=== PATIENT | male | born 1985 | race Caucasian/White ===

== ENCOUNTER → 2016-12-06 | Outpatient (CLI) | payer BC ==
[2016-12-06 11:28] LABS: BASO % 0.1 %; BASO ABS # 0.01 K/uL (0-0.2); COMPLETE YES; EOS % 0.1 %; HEMATOCRIT 43.7 % (42-52); IG% 0.4 %; LYMPH % 11.9 %; LYMPH ABS # 1.61 K/uL (1.2-3.4); MEAN CELL VOLUME 89.7 fL (80-100); MEAN CORPUSCULAR HGB CONC 34.6 g/dl (32-36); MEAN PLATELET VOLUME 11.3 fL (7.4-10.4); NEUT % 84.5 %; PLATELET COUNT 244 K/uL (130-400); RED BLOOD COUNT 4.87 M/uL (4.7-6.1)
[2016-12-06 11:38] LABS: PARTIAL THROMBOPLASTIN RATIO 1.1; PROTHROMBIN TIME (PATIENT) 10.4 SECONDS (9.0-12.0)
--- NOTE | 2016-12-10 11:04 | CODING QUERY NO DIAGNOSIS ---
TREATMENT RENDERED WITHOUT A DIAGNOSIS : 1985 To promote full compliance with coding requirements relating to patient care, physician participation is requested in all cases of shake feeder uncertainty. Please assist us with providing a diagnosis/symptom for the test(s) below: A diagnosis/symptom was not documented on your Order. A valid diagnosis/symptom is required to bill all insurances. Please remember that we are unable to code a diagnosis of rule out, probable, possible, questionable, or suspected. Tests that require a diagnosis: DOS: 12/06/16 * CBC WITH AUTO DIFFER DIAGNOSIS: * PROTHROMBIN TIME PRO DIAGNOSIS: * PTT DIAGNOSIS: Provider Signature: Date: Thank you Marilee Nicole Health Information Management Once completed, please kindly fax back to [phone] For questions please call [phone]
== END | disposition home or self-care (01) ==
LOC: C.LAB 10:50
PROVIDERS: ATTEND Family Medicine
DX: R23.3 Spontaneous ecchymoses (principal)

== ENCOUNTER 2017-08-19 05:43 | Observation (INO) | payer BC ==
[~2017-08-19] VITALS: Ht 182.9 cm; Wt 149.5 kg
[2017-08-19] MEDS ORDERED: EpINEphrine INJ 1MG/ML AMP 1 MG/ML AMP IM STA ×2 (06:03→09:50)
[2017-08-19] MEDS ORDERED: DiphenhydrAMINE HCL 50 MG/ML VIAL IV STA ×2 (06:03→08:48)
[2017-08-19] MEDS ORDERED: METHYLPREDNISOLONE 125 MG VIAL IV STA (06:03)
[2017-08-19] MEDS ORDERED: SODIUM CHLORIDE 0.9% 1000ML 1,000 ML IV ONE (06:15)
[2017-08-19] MEDS ORDERED: FAMOTIDINE IV INJ 20 MG in DEXTROSE 5% 100ML 100 ML IV ONE ×2 (06:15→12:00)
[2017-08-19 06:25] LABS: BASO % 0.1 %; BASO ABS # 0.01 K/uL (0-0.2); EOS % 0.5 %; EOS ABS # 0.04 K/uL (0-0.5); HEMATOCRIT 42.6 % (42-52); HEMOGLOBIN 14.9 g/dL (14.0-18.0); IG# 0.05 K/uL (0.00-0.02); LYMPH % 33.5 %; LYMPH ABS # 2.87 K/uL (1.2-3.4); MEAN CELL VOLUME 86.6 fL (80-100); MEAN CORPUSCULAR HEMOGLOBIN 30.3 pg (25-34); MEAN PLATELET VOLUME 10.7 fL (7.4-10.4); MONO % 5.4 %; MONO ABS # 0.46 K/uL (0.11-0.59); NEUT % 59.9 %; NEUT ABS # 5.14 K/uL (1.4-6.5); PLATELET COUNT 202 K/uL (130-400); RED CELL DISTRIBUTION WIDTH SD 40.9 fL (36.4-46.3); WHITE BLOOD COUNT 8.57 K/uL (4.8-10.8)
[2017-08-19 06:42] LABS: ALBUMIN 3.8 gm/dl (3.4-5.0); CALCIUM 9.3 mg/dl (8.5-10.1); CREATININE 1.02 mg/dl (0.60-1.40)
[2017-08-19 06:45] LABS: TOTAL PROTEIN 7.4 gm/dl (6.4-8.2)
[2017-08-19 10:17] VITALS: O2SAT 97; Ht 182.9 cm; Wt 149.5 kg
[2017-08-19] MEDS ORDERED: HydrALAZINE HCL 20 MG/ML VIAL IV PRN (11:15)
[2017-08-19] MEDS ORDERED: ACETAMINOPHEN 325 MG TAB PO PRN (11:30)
[2017-08-19] MEDS ORDERED: MAGNESIUM HYDROXIDE SUSP 30 ML UDC PO PRN (11:30)
[2017-08-19] MEDS ORDERED: ONDANSETRON INJ 2 MG/ML 2 ML VIAL IV PRN (11:30)
[2017-08-19] MEDS ORDERED: ALUMINUM/MAGNESIUM/SIMETH (MAALOX MAX) 30 ML UDC PO PRN (11:30)
[2017-08-19] MEDS ORDERED: FAMOTIDINE IV INJ 20 MG in DEXTROSE 5% 100ML 100 ML IV SCH (11:30)
--- NOTE | 2017-08-19 11:34 | History and Physical ---
History & Physical Date & Time of Service: Aug 19, 2017 at 11:27 Chief Complaint: HIVES Primary Care Physician: Deny Joshi M.D. History of Present Illness This patient is a 32-year-old male who just returned from [place] where he was on his honeymoon this is reportedly 4 days prior to today he reportedly felt fine ate all kinds of seafood and fish. The patient does have an allergy listed to mark and watermelon but he states he had no problems during his vacation. One day prior to presentation the patient was eating at [employer] where he had some fish some shrimp he had some mozzarella sticks a few hours later he began noticing him having some hives or itching beginning in his axillary folds. Patient took some Benadryl and some red bull as he did not want to get tired from the Benadryl and went to bed. The patient had no problems sleeping or breathing overnight but this morning noticed him to have more widespread rash and more pruritus. Patient also noticed the swelling to his hands. Patient still does not have any problems with breathing as he states he has had that in the past specifically with antibiotics and knows how scary I can be. In the ER the patient was treated with steroids IV Benadryl epinephrine IV Pepcid with transient mild improvement but now recurrence of his symptoms He is observed in our facility for progressive allergic reaction/anaphylaxis Social History Smoking Status: Current Some Day Smoker Smokeless Tobacco Use: No Alcohol Use: socially Drug Use: none Marital Status: Housing status: lives with family Occupational Status: employed Allergies Coded Allergies: Azithromycin (Verified Allergy, Severe, RASH, 08/19/17) throat closes some [place] (Verified Allergy, Severe, pruritis, 08/19/17) Penicillins (Verified Allergy, Severe, SHORTNESS OF BREATH, 08/19/17) rash Watermelon (Verified Allergy, Severe, itchy, 08/19/17) Amoxicillin (Verified Allergy, Unknown, SHORTNESS OF BREATH, 08/19/17) rash Uncoded Allergies: MELON (Allergy, Severe, itchy skin, 08/19/17) Home Medications No Active Prescriptions or Reported Meds Review of Systems ROS: well nourished well developed. No double vision blurry vision No problems with speech or swallowing No palpitations, chest pain or pressure, the patient did feel a racing heartbeat with epinephrine No Wheezing or breathing issues No abdominal pain nausea vomiting diarrhea changes in appetite or weight No burning urine urine frequency or changes in color No focal joint pain or muscle pain Diffuse erythematous well-demarcated papules and some hives worse in flexural folds of his body saw him on his palms (mostly reddened without raised areas) No unusual bruising or bleeding No focused back pain or numbness or loss of strength No changes in memory or confusion Physical Exam Vital Signs Date Time Temp Pulse Resp B/P (MAP) Pulse Ox O2 Delivery O2 Flow Rate FiO2 08/19/17 11:01 111 22 164/98 97 Room Air 2.0 08/19/17 10:17 97 Room Air 2.0 08/19/17 10:16 103 08/19/17 10:13 106 20 178/97 97 Room Air 08/19/17 10:12 98 Nasal Cannula 2.0 08/19/17 09:45 108 20 155/82 94 Room Air 08/19/17 09:13 105 20 166/98 95 Room Air 08/19/17 08:15 100 20 150/99 96 Room Air 08/19/17 06:56 93 20 154/88 95 Room Air 08/19/17 06:22 104 08/19/17 06:20 97 Room Air 08/19/17 06:19 97 Room Air 08/19/17 05:49 36.8 112 20 158/97 97 Room Air General Appearance: WD/WN, + mild distress Head: normocephalic, atraumatic Eyes: normal inspection, sclerae normal ENT: pharynx normal Neck: supple, no JVD Respiratory/Chest: chest non-tender, lungs clear, normal breath sounds Cardiovascular: regular rate, rhythm, no murmur Abdomen/GI: normal bowel sounds, non tender, soft Back: no CVA tenderness, no muscle spasm Extremities/Musculoskelatal: normal inspection, normal capillary refill Neurologic/Psych: alert, oriented x 3 Skin: + rash (There is widespread diffuse well-circumscribed erythematous hives and well-demarcated coalescing plaques consistent with allergic reaction) Diagnostics Laboratory Results Results Past 24 Hours Test 08/19/17 06:10 Range/Units White Blood Count 8.57 4.8-10.8 K/uL Red Blood Count 4.92 4.7-6.1 M/uL Hemoglobin 14.9 14.0-18.0 g/dL Hematocrit 42.6 42-52 % Mean Corpuscular Volume 86.6 80-100 fL Mean Corpuscular Hemoglobin 30.3 25-34 pg Mean Corpuscular Hemoglobin Concent 35.0 32-36 g/dl Platelet Count 202 130-400 K/uL Mean Platelet Volume 10.7 7.4-10.4 fL Neutrophils (%) (Auto) 59.9 % Lymphocytes (%) (Auto) 33.5 % Monocytes (%) (Auto) 5.4 % Eosinophils (%) (Auto) 0.5 % Basophils (%) (Auto) 0.1 % Neutrophils # (Auto) 5.14 1.4-6.5 K/uL Lymphocytes # (Auto) 2.87 1.2-3.4 K/uL Monocytes # (Auto) 0.46 0.11-0.59 K/uL Eosinophils # (Auto) 0.04 0-0.5 K/uL Basophils # (Auto) 0.01 0-0.2 K/uL RDW Standard Deviation 40.9 36.4-46.3 fL RDW Coefficient of Variation 13.0 11.5-14.5 % Immature Granulocyte % (Auto) 0.6 % Immature Granulocyte # (Auto) 0.05 0.00-0.02 K/uL Sodium Level 138 136-145 mmol/L Potassium Level 4.0 3.5-5.1 mmol/L Chloride Level 107 98-107 mmol/L Carbon Dioxide Level 23 21-32 mmol/L Anion Gap 8.0 3-11 mmol/L Blood Urea Nitrogen 11 7-18 mg/dl Creatinine 1.02 0.60-1.40 mg/dl Est Creatinine Clear Calc Drug Dose 158.1 ml/min Estimated GFR () 113.0 Estimated GFR (Non- 97.5 BUN/Creatinine Ratio 11.0 10-20 Random Glucose 148 70-99 mg/dl Calcium Level 9.3 8.5-10.1 mg/dl Total Bilirubin 0.3 0.2-1 mg/dl Aspartate Amino Transf (AST/SGOT) 30 15-37 U/L Alanine Aminotransferase (ALT/SGPT) 86 12-78 U/L Alkaline Phosphatase 70 45-117 U/L Total Protein 7.4 6.4-8.2 gm/dl Albumin 3.8 3.4-5.0 gm/dl Globulin 3.6 2.5-4.0 gm/dl Albumin/Globulin Ratio 1.1 0.9-2 Impression Assessment and Plan 32-year-old male with progressive allergic reaction, recent exposure to shellfish Because of this patient's allergic reaction is not quite a down in the ER and he has given epinephrine with unknown need of it in the future this patient be observed in telemetry for the ability to act quickly if his allergic reaction does progress. Patient be continued on Solu-Medrol intravenous famotidine and intravenous diphenhydramine monitoring his vital signs and oximetry. We did discuss with the presence of his the possibility of having allergy testing after discharge Because of the degree of inflammation, the patient's BMI of 44 horrifying him to be morbidly obese and is likely mobility over next few days we will use Lovenox therapy for DVT prevention Advanced Directives Existing Living Will: No Existing Power of [employer] Worker: No Resuscitation Status VTE Prophylaxis Will order VTE Prophylaxis: Yes Social Service Consult None Apply
[2017-08-19] MEDS: DiphenhydrAMINE HCL 50 MG/ML VIAL IV SCH ×3 (12:00→23:57)
[2017-08-19] MEDS ORDERED: DiphenhydrAMINE INJ 25 MG in SYRINGE 0 ML IV SCH (12:00)
[2017-08-19] MEDS ORDERED: DiphenhydrAMINE HCL 50 MG/ML VIAL IV ONE (12:00)
[2017-08-19 12:03] LABS: PTT PATIENT 27.1 SECONDS (21.0-31.0)
[2017-08-19] MEDS ORDERED: FAMOTIDINE IV INJ 20 MG in SYRINGE 3 ML IV ONE (12:30)
[2017-08-19] MEDS: METHYLPREDNISOLONE IV 40 MG in SYRINGE 0 ML IV SCH ×3 (13:11→23:57)
[2017-08-19] MEDS ORDERED: hydrOXYzine HCL 25 MG TAB PO STA (15:19)
[2017-08-19 16:00] VITALS: PULSE 125; O2SAT 98
--- NOTE | 2017-08-19 16:58 | EMERGENCY ROOM VISIT NOTE ---
ED Visit Note First contact with patient: 07:12 This is a 32-year-old male his care was transferred to ks from Archie Arreola PA-C at change of shift. The patient came to the emergency department with complaint of an allergic reaction to food. Patient was administered IV medications and subcutaneous epinephrine which helped to control his symptoms. At the time of transfer of care, the patient was being observed for an approximate 4-5 hours prior to discharge. 3 hours after his medication dosing, the patient started to report an itchy sensation again in his abdomen and arms. The patient was then administered Benadryl 25 mg IVP which helped for approximately 15 minutes before the patient's stated that he felt like his lips were swelling. He also started to notice swelling of the left hand and foot. At this point, the patient was administered an additional epinephrine 0.3 mg subcutaneous. The patient reports that he continued to have further outbreak of hives. He denied any chest pain, shortness of breath, throat tightness or difficulty breathing. The case was then further discussed with Dr. Cartwright, ED attending physician , who agrees with hospitalist evaluation and observation for symptoms. The case was discussed with Dr. Saavedra, [facility] hospitalist. Please see their dictation for further treatment and final disposition. DIAGNOSIS: Anaphylaxis
[2017-08-19] MEDS: FAMOTIDINE IV INJ 20 MG in SYRINGE 3 ML IV SCH (17:01)
[2017-08-19] MEDS ORDERED: IV FLUIDS COMPLETED PRN (17:30)
[2017-08-19] MEDS: ENOXAPARIN 40 MG/0.4 ML SYR SC SCH (17:55)
[2017-08-19 18:03] VITALS: BP_SYST 158; BP_SYST 160; BP_DIAS 101; BP_DIAS 99
[2017-08-19 18:35] VITALS: BP 147/93
[2017-08-19 19:47] VITALS: BP 175/105; PULSE 127; TEMP 36.5; O2SAT 98
[2017-08-19] MEDS ORDERED: NURSING VERBAL MED ORDER ONE ×3 (20:15→21:00)
[2017-08-19] MEDS ORDERED: MoRPHine SULFATE 2 MG/ML CARP IV PRN (20:15)
[2017-08-19] MEDS ORDERED: KETOROLAC TROMETHAMINE 15 MG/ML VIAL IV. PRN (22:00)
[2017-08-20] VITALS (7 sets, daily range): BP systolic 128–154; BP diastolic 75–98; PULSE 107–116; TEMP 36.5–37.6; O2SAT 92–100
--- NOTE | 2017-08-20 02:10 | EMERGENCY ROOM VISIT NOTE ---
History First contact with patient: 05:56 Chief Complaint: ALLERGIC REACTION Stated Complaint: ANAPHYLAXIS History of Present Illness The patient is a 32 year old male who presents to the Emergency Room with complaints of abdominal pain, nausea, and full body rash that began spontaneously about 1 hour ago. The patient states that he was at his normal state of health earlier today. He recently returned home after honeymooning with this in [facility]. The patient states that he had seafood for dinner, which she has tolerated in the past. Shortly after having the seafood he began with abdominal discomfort, and then the rash. He did take some Benadryl at home which did not significantly improve his symptoms. He feels like he is having swelling of his lower lip. The patient rates his current discomfort a 5/10. He does not take prescription medication on a regular basis , and denies recent antibiotic use. Review of Systems More than 10 systems were reviewed and otherwise negative with the exception of history of present illness. Past Medical/Surgical History No chronic medical disease Family History No pertinent family history Social History Smoking Status: Current Some Day Smoker Smokeless Tobacco Use: No Drug Use: none Marital Status: Occupation Status: employed Current/Historical Medications No Active Prescriptions or Reported Meds Physical Exam Vital Signs Date Time Temp Pulse Resp B/P (MAP) Pulse Ox O2 Delivery O2 Flow Rate FiO2 08/19/17 11:01 111 22 164/98 97 Room Air 2.0 08/19/17 10:17 97 Room Air 2.0 08/19/17 10:16 103 08/19/17 10:13 106 20 178/97 97 Room Air 08/19/17 10:12 98 Nasal Cannula 2.0 08/19/17 09:45 108 20 155/82 94 Room Air 08/19/17 09:13 105 20 166/98 95 Room Air 08/19/17 08:15 100 20 150/99 96 Room Air 08/19/17 06:56 93 20 154/88 95 Room Air 08/19/17 06:22 104 08/19/17 06:20 97 Room Air 08/19/17 06:19 97 Room Air 08/19/17 05:49 36.8 112 20 158/97 97 Room Air Physical Exam VITALS: Vitals are noted on the nurse's note and reviewed by myself. Vital signs with tachycardia GENERAL: White male who is experiencing an obvious allergic reaction. MOUTH: Mucous membranes moist. Tonsils are not enlarged. Pharynx without erythema, blood, or exudate. Uvula midline. Airway patent. There is mild edema of the lower lip primarily on the right side. NECK: Supple without nuchal rigidity. No lymphadenopathy. No thyromegaly. Cervical spine is nontender. HEART: Tachycardic rate and regular rhythm LUNGS: Clear to auscultation bilaterally without wheezes, rales or rhonchi. No retractions or accessory muscle use. ABDOMEN: Positive normal bowel sounds x 4. Soft, nontender, without masses or organomegaly. No guarding or rebound tenderness. SKIN: The skin was with diffuse erythema with extensive urticaria best appreciated on the anterior forearms and abdomen Medical Decision & Procedures Laboratory Results 08/19/17 06:10 Red Blood Count 4.92, Mean Corpuscular Volume 86.6, Mean Corpuscular Hemoglobin 30.3, Mean Corpuscular Hemoglobin Concent 35.0, Mean Platelet Volume 10.7, Neutrophils (%) (Auto) 59.9, Lymphocytes (%) (Auto) 33.5, Monocytes (%) (Auto) 5.4, Eosinophils (%) (Auto) 0.5, Basophils (%) (Auto) 0.1, Neutrophils # (Auto) 5.14, Lymphocytes # (Auto) 2.87, Monocytes # (Auto) 0.46, Eosinophils # (Auto) 0.04, Basophils # (Auto) 0.01 08/19/17 06:10 Test 08/19/17 06:10 White Blood Count 8.57 K/uL (4.8-10.8) Red Blood Count 4.92 M/uL (4.7-6.1) Hemoglobin 14.9 g/dL (14.0-18.0) Hematocrit 42.6 % (42-52) Mean Corpuscular Volume 86.6 fL (80-100) Mean Corpuscular Hemoglobin 30.3 pg (25-34) Mean Corpuscular Hemoglobin Concent 35.0 g/dl (32-36) Platelet Count 202 K/uL (130-400) Mean Platelet Volume 10.7 fL (7.4-10.4) Neutrophils (%) (Auto) 59.9 % Lymphocytes (%) (Auto) 33.5 % Monocytes (%) (Auto) 5.4 % Eosinophils (%) (Auto) 0.5 % Basophils (%) (Auto) 0.1 % Neutrophils # (Auto) 5.14 K/uL (1.4-6.5) Lymphocytes # (Auto) 2.87 K/uL (1.2-3.4) Monocytes # (Auto) 0.46 K/uL (0.11-0.59) Eosinophils # (Auto) 0.04 K/uL (0-0.5) Basophils # (Auto) 0.01 K/uL (0-0.2) RDW Standard Deviation 40.9 fL (36.4-46.3) RDW Coefficient of Variation 13.0 % (11.5-14.5) Immature Granulocyte % (Auto) 0.6 % Immature Granulocyte # (Auto) 0.05 K/uL (0.00-0.02) Prothrombin Time 10.7 SECONDS (9.0-12.0) Prothromb Time International Ratio 1.0 (0.9-1.1) Activated Partial Thromboplast Time 27.1 SECONDS (21.0-31.0) Partial Thromboplastin Ratio 1.0 Anion Gap 8.0 mmol/L (3-11) Est Creatinine Clear Calc Drug Dose 158.1 ml/min Estimated GFR () 113.0 Estimated GFR (Non- 97.5 BUN/Creatinine Ratio 11.0 (10-20) Calcium Level 9.3 mg/dl (8.5-10.1) Total Bilirubin 0.3 mg/dl (0.2-1) Aspartate Amino Transf (AST/SGOT) 30 U/L (15-37) Alanine Aminotransferase (ALT/SGPT) 86 U/L (12-78) Alkaline Phosphatase 70 U/L (45-117) Total Protein 7.4 gm/dl (6.4-8.2) Albumin 3.8 gm/dl (3.4-5.0) Globulin 3.6 gm/dl (2.5-4.0) Albumin/Globulin Ratio 1.1 (0.9-2) Medications Administered Medications (Trade) Dose Ordered Sig/Mirna Route Start Time Stop Time Status Last Admin Dose Admin Diphenhydramine HCl (Benadryl Inj) 50 mg NOW STAT IV 08/19/17 06:03 08/19/17 06:06 DC 08/19/17 06:13 50 MG Sodium Chloride 1,000 ml @ 999 mls/hr Q1H1M ONCE IV 08/19/17 06:15 08/19/17 07:15 DC 08/19/17 06:13 999 MLS/HR Methylprednisolone Sodium Succinate (Solu-Medrol IV) 125 mg NOW STAT IV 08/19/17 06:03 08/19/17 06:06 DC 08/19/17 06:13 125 MG Famotidine 20 mg/ Dextrose 102 ml @ 200 mls/hr NOW ONCE IV 08/19/17 06:15 08/19/17 06:45 DC 08/19/17 06:39 200 MLS/HR Epinephrine HCl (EpINEphrine INJ 1MG/ML AMP/VIAL) 0.3 mg NOW STAT IM 08/19/17 06:03 08/19/17 06:06 DC 08/19/17 06:13 0.3 MG Diphenhydramine HCl (Benadryl Inj) 25 mg NOW STAT IV 08/19/17 08:48 08/19/17 08:49 DC 08/19/17 08:55 25 MG Epinephrine HCl (EpINEphrine INJ 1MG/ML AMP/VIAL) 0.3 mg NOW STAT IM 08/19/17 09:50 08/19/17 09:52 DC 08/19/17 09:58 0.3 MG Hydralazine HCl (HydrALAZINE INJ) 10 mg Q4H PRN IV 08/19/17 11:15 09/18/17 11:14 08/19/17 18:02 10 MG ED Course Physical exam and history were performed. Nursing notes, EMR, and Medication List were personally reviewed. Patient appears to be experiencing an allergic reaction. The patient was evaluated immediately upon presentation to the emergency department. He appears to be in anaphylaxis. IV access was established and labs were obtained. The patient was given IV Benadryl, IV Pepcid, and IV Solu-Medrol. He was given IM epinephrine. He is placed on the cardiac care nurse. The patient's blood work is as above and was reviewed. He does not have a significantly elevated white blood cell count, gross anemia, bandemia, or significant electrolyte imbalance. The patient was monitored very closely and reevaluated multiple times throughout the course of his stay. After about 1 hour of being given medication the patient had remarkable improvement in his erythema and his hives. I initially thought that the redness of his skin may have been from being in [place], and could be related to a sunburn, however after medication it was obvious that this was from his allergic reaction. The patient remained in stable condition until the time of shift change. I discussed the case with Stan Santiago PA-C, who will assume care at this time. The patient will need monitoring for several more hours to ensure no rebound reaction after the epinephrine. Please see Mr. Santiago's dictation for further patient course, plan, and disposition The chart was completed utilizing [employer] Speech Voice Recognition Software. Grammatical errors, random word insertions, pronoun errors, and incomplete sentences are an occasional consequence of this system due to software limitations, ambient noise, and hardware issues. Any formal questions or concerns about the content, text, or information contained within the body of this dictation should be directly addressed to the provider for clarification. . Medical Decision Differential diagnosis: Etiologies such as allergic reaction, anaphylaxis, urticaria, Bacon-Alberto syndrome, toxic epidermal necrolysis, erythema multiforme, cellulitis, as well as others were entertained. Impression Primary Impression: Anaphylaxis Critical Care I have personally spent greater than 30 minutes of critical care time in the direct management of this patient. This includes bedside care, interpretation of diagnostic studies, and testing, discussion with consultants, patient, and family members, and other required patient management activities. This 30 minutes is in excess of all separately billable procedures. Departure Information Dispostion Home / Self-Care Condition FAIR Prescriptions No Active Prescriptions or Reported Meds Referrals Deny Joshi M.D. (PCP) Forms HOME CARE DOCUMENTATION FORM, IMPORTANT VISIT INFORMATION Patient Instructions My [facility] Additional Instructions For the next 48 hours, suggest taking Benadryl 25-50 mg every 6-8 hours PLUS Zantac 150 mg every 12 hours. You have been provided a prescription for an EpiPen should your symptoms significantly worsen. Keep cool and avoid hot showers. Follow-up with your PCP within the next 24-48 hours for recheck. Return to the emergency department immediately for any worsening symptoms. Problem Qualifiers Primary Impression: Anaphylaxis Encounter type: initial encounter Qualified Codes: T78.2XXA - Anaphylactic shock, unspecified, initial encounter
[2017-08-20] MEDS: DiphenhydrAMINE HCL 50 MG/ML VIAL IV SCH ×3 (06:08→18:52)
[2017-08-20] MEDS: METHYLPREDNISOLONE IV 40 MG in SYRINGE 0 ML IV SCH ×3 (06:08→17:59)
[2017-08-20] MEDS: FAMOTIDINE IV INJ 20 MG in SYRINGE 3 ML IV SCH ×2 (06:08→18:01)
[2017-08-20 07:07] LABS: CREATININE 1.21 mg/dl (0.60-1.40); POTASSIUM 4.4 mmol/L (3.5-5.1)
--- NOTE | 2017-08-20 08:20 | Hospitalist Progress Note ---
Hospitalist Progress Note Date of Service Aug 20, 2017. Subjective Pt evaluation today including: conversation w/ patient, conversation w/ family , physical exam, chart review, lab review Pain: None PO Intake: Good Voiding: no voiding problems The patient was seen and examined this morning. Pt reports doing much better than last night. His rash and itching has significantly improved but that this is still overlying his back slightly. Pt was recently in [place] from his honeymoon for 6 days, and returned 2 days ago. Pt is sunburnt from the trip, but report that he truely had hives last night. is present and provides pictures of the rash to show me what it looked like for comparison. He remains tachycardic, does not complain of chest pain or shortness of breath. He was initially hypoxic in the low 90s on room air so was placed on 3L, since this afternoon has been weaned off o2. He denies any other acute complaints. Pt does not know what he could have eaten that would have caused him to have this type of reaction. Follow up later in the day - pt is still tachycardic and requesting for discharge if possible. ROS: 6 point ROS reviewed and otherwise negative. Objective Vital Signs Date Time Temp Pulse Resp B/P (MAP) Pulse Ox O2 Delivery O2 Flow Rate FiO2 08/20/17 08:02 37.6 107 20 128/88 (101) 100 08/20/17 04:00 Nasal Cannula 3.0 08/20/17 03:33 36.5 116 22 139/93 (108) 98 Nasal Cannula 3.0 08/20/17 00:00 36.8 115 16 139/95 (110) 97 Nasal Cannula 3.0 08/19/17 23:59 Nasal Cannula 3.0 08/19/17 20:00 Nasal Cannula 2.0 08/19/17 19:47 36.5 127 20 175/105 (128) 98 Nasal Cannula 2.0 08/19/17 18:35 147/93 (111) 08/19/17 18:03 160/99 (119) 158/101 (120) 08/19/17 16:00 125 14 Nasal Cannula 08/19/17 16:00 98 Nasal Cannula 2.0 08/19/17 11:01 111 22 164/98 97 Room Air 2.0 08/19/17 10:17 97 Room Air 2.0 08/19/17 10:16 103 08/19/17 10:13 106 20 178/97 97 Room Air 08/19/17 10:12 98 Nasal Cannula 2.0 08/19/17 09:45 108 20 155/82 94 Room Air 08/19/17 09:13 105 20 166/98 95 Room Air Physical Exam General Appearance: WD/WN, no apparent distress, + obese Eyes: PERRL, EOMI ENT: hearing grossly normal, pharynx normal Neck: supple, no JVD Respiratory/Chest: lungs clear, no respiratory distress, no accessory muscle use Cardiovascular: + tachycardia (HR in the 110s), + systolic murmur (LUSB 2nd ICS , grade III/IV) Abdomen: normal bowel sounds, non tender, soft Extremities: non-tender, no pedal edema, no calf tenderness Neurologic/Psychiatric: alert, normal mood/affect, oriented x 3 Skin: warm/dry, + pertinent finding (diffuse maculopapular rash overlying back , arms and chest, + sunburn over chest and back. Rash does not extend below the waist.) Laboratory Results Last 24 Hours Test 08/20/17 06:03 Sodium Level 135 mmol/L Potassium Level 4.4 mmol/L Chloride Level 104 mmol/L Carbon Dioxide Level 21 mmol/L Anion Gap 10.0 mmol/L Blood Urea Nitrogen 21 mg/dl Creatinine 1.21 mg/dl Est Creatinine Clear Calc Drug Dose 133.1 ml/min Estimated GFR () 91.9 Estimated GFR (Non- 79.3 BUN/Creatinine Ratio 17.7 Random Glucose 315 mg/dl Calcium Level 9.0 mg/dl Beta-Hydroxybutyric Acid 1.44 mg/dL Assessment and Plan 32-year-old male with progressive allergic reaction, recent exposure to shellfish. The patient has remained tachycardic, so suspicious for PE with hypoxia and recent travel. A Ddimer was checked and [place] 3610. CT PE has been ordered urgently, and are awaiting results. Tachycardia Systolic murmur - Not improved throughout the day - recent travel via plane to [facility] is concerning for PE - Checked ddimer which is significantly elevated, CTPE was negative but reported with poor image quality. V/Q scan would likely not give more information due to body habitus. Will check DVT Bilat LE to r/o. - Will check infectious workup with Bcx x 2, UA and culture if indicated - Check TSH with tachycardia - IVFs x 1 L - O2 protocol - Ordered 2d echo with murmur noted on exam, pt denies hx of murmur before. Allergic reaction: - In ER pt was given epinephrine - observed in telemetry for the ability to act quickly if his allergic reaction does progress. - at this time allergic reaction seems to be improving. He is also sunburnt admist the rash though. - Ddimer possibly elevated due to proinflammatory reaction - Continued on solumedrol, iv famotidine and iv benadryl - Likely needs allergy testing after dc Morbid Obesity - BMI 44.7 - Encourage diet and exercise DVT ppx: lovenox subq Disposition: From home, lives with , change to admit status today, possible discharge tomorrow. Continued [facility] stay due to: fever, abnormal vital signs Discharge planning: home
[2017-08-20] MEDS ORDERED: NURSING VERBAL MED ORDER ONE ×2 (16:45)
[2017-08-20] MEDS ORDERED: OPTIRAY 320 IV PRN (16:45)
[2017-08-20] MEDS ORDERED: SODIUM CHLORIDE 0.9% 1000ML 1,000 ML IV SCH (17:00)
--- NOTE | 2017-08-20 17:31 | DIAGNOSTIC IMAGING REPORT ---
(CHEST FOR PE) ANGIO WITH CLINICAL HISTORY: 32 years-old Male presenting with ^Tachycardia, desaturation, + Ddimer. TECHNIQUE: Multidetector CT angiography of the chest was performed after administration of intravenous contrast. 3-D volumetric and/or maximum intensity projection (MIP) images were subsequently reconstructed for review. IV contrast: 108 mL of Optiray 320. A dose lowering technique was used consistent with the principles of ALARA (as low as reasonably achievable). COMPARISON: None. CT DOSE (mGy.cm): The estimated cumulative dose is 689.65 mGy.cm. FINDINGS: Shampoo Technician topogram: Unremarkable. Pulmonary vasculature: The study is suboptimal for the assessment of the pulmonary vascular tree secondary to timing of the contrast bolus and respiratory motion artifact. Allowing for limited image quality, no central filling defect to suggest pulmonary embolus. Main pulmonary artery is not enlarged. No flattening of the interventricular septum. No intracardiac filling defect. No reflux of contrast into the hepatic veins. Remaining chest: On soft tissue windows, normal thyroid and thoracic inlet. No axillary, supraclavicular, hilar, or mediastinal lymphadenopathy. Normal aorta. Normal heart size. No pericardial or pleural effusion. Hepatic steatosis. On lung windows, no focal infiltrate or nodule. Airways patent. On bone windows, normal osseous structures. IMPRESSION: 1. Allowing for suboptimal image quality, no evidence of pulmonary embolus. No acute intrathoracic pathology. 2. Hepatic steatosis. Electronically signed by: Jose Wade M.D. 08/20/2017 5:29 PM Dictated Date/Time: 08/20/2017 5:26 PM
[2017-08-20] MEDS ORDERED: PERFLUTREN LIPID MICROSPHERE (DEFINITY) IV ONE (17:58)
[2017-08-20] MEDS: ENOXAPARIN 40 MG/0.4 ML SYR SC SCH (18:00)
--- NOTE | 2017-08-20 19:17 | ECHOCARDIOGRAM REPORT ---
*NOTICE TO RECEIVING DEMOCRAT AGENCY This information is strictly Confidential and protected under [place] law. [place] law prohibits you from making any further disclosure of this information unless further disclosure is expressly permitted by the written consent of the person to whom it pertains or is authorized by law. A general authorization for the release of medical or other information is not sufficient for this purpose. Hospital accepts no responsibility if the information is made available to any other person, INCLUDING THE PATIENT. Interpretation Summary * Name: JON LOPEZ Study Date: 08/20/2017 05:11 PM BP: 154/75 mmHg * Patient Location: .2E\S\E204\S\1 HR: 115 * : 1985 (M/d/yyyy) Gender: Male Height: 72 in * Age: 32 yrs Ethnicity: CA Weight: 329 lb * Ordering Physician: Dee Major * Referring Physician: Self, Referred * Performed By: Janel Unger RDCS * * Reason For Study: Murmurs * BSA: 2.6 m2 * -- Conclusions -- * The study was technically difficult. * Image quality was suboptimal * There is mild concentric left ventricular hypertrophy. * The left ventricle is hyperdynamic. * Grade I diastolic dysfunction, (abnormal relaxation pattern). * Cannot exclude a lesion on the mitral valve chordae. * Right ventricular systolic pressure is normal. Procedure Details * A complete two-dimensional transthoracic echocardiogram was performed (2D, M-mode, Doppler and color flow Doppler). * The study was technically difficult. * The study was technically difficult, but visualization was adequate with the administration of Definity ultrasound contrast. * There were technical limitations due to patient'sbody habitus * A contrast injection of Definity was performed to improve assessment of LV function. * Contrast was injected into an intravenous site in the left arm. * One vial of Definity ultrasound contrast was diluted in normal saline to a total volume of 10 ml. A total of '2' ml of solution was administered during imaging. * Lot # [id number] of Definity utilized for procedure. * Expiration date . * The attending nurse who injected the contrast agent was AMERICO Perera. * Image quality was suboptimal Left Ventricle * The left ventricle is grossly normal size. * There is mild concentric left ventricular hypertrophy. * Ejection Fraction = 65-70%. * The left ventricle is hyperdynamic. * Grade I diastolic dysfunction, (abnormal relaxation pattern). * The left ventricular wall motion is normal. Right Ventricle * The right ventricle is grossly normal size. * The right ventricular systolic function is normal. Atria * The left atrium is not well visualized. * Right atrium not well visualized. Mitral Valve * There is some mild mitral annular calcification with what appears to be some thickening of the chordae. * Cannot exclude a lesion on the mitral valve chordae. Tricuspid Valve * The tricuspid valve is not well visualized. * There is trace tricuspid regurgitation. * Right ventricular systolic pressure is normal. Aortic Valve * The aortic valve is not well visualized. * The aortic valve opens well. * No hemodynamically significant valvular aortic stenosis. * There is no significant aortic regurgitation. Great Vessels * The aortic root is normal size. Pericardium/Pleural * There is no pericardial effusion. MMode 2D Measurements and Calculations IVSd 1.7 cm IVSs 2.2 cm LVIDd 4.6 cm LVIDs 2.9 cm LVPWd 1.3 cm LVPWs 1.7 cm IVS/LVPW 1.3 FS 37.1 % EDV(Teich) 99.4 ml ESV(Teich) 32.7 ml EF(Teich) 67.1 % EDV(cubed) 100.1 ml ESV(cubed) 24.9 ml EF(cubed) 75.2 % % IVS thick 24.7 % % LVPW thick 32.1 % LV mass(C)d 292.7 grams LV mass(C)dI 111.2 grams/m\S\2 LV mass(C)s 240.3 grams LV mass(C)sI 91.3 grams/m\S\2 SV(Teich) 66.7 ml SI(Teich) 25.4 ml/m\S\2 SV(cubed) 75.2 ml SI(cubed) 28.6 ml/m\S\2 Ao root diam 3.1 cm Ao root area 7.6 cm\S\2 ACS 2.0 cm LA dimension 4.1 cm LA/Ao 1.3 LVAd ap4 33.1 cm\S\2 LVLd ap4 9.4 cm EDV(MOD-sp4) 94.1 ml EDV(sp4-el) 99.5 ml LVAs ap4 14.4 cm\S\2 LVLs ap4 7.8 cm ESV(MOD-sp4) 22.5 ml ESV(sp4-el) 22.6 ml EF(MOD-sp4) 76.1 % EF(sp4-el) 77.2 % LVAd ap2 33.6 cm\S\2 LVLd ap2 9.8 cm EDV(MOD-sp2) 92.9 ml EDV(sp2-el) 97.9 ml LVAs ap2 10.1 cm\S\2 LVLs ap2 7.1 cm ESV(MOD-sp2) 12.0 ml ESV(sp2-el) 12.3 ml EF(MOD-sp2) 87.1 % EF(sp2-el) 87.4 % LVLd %diff 4.2 % EDV(MOD-bp) 94.6 ml LVLs %diff -10.44 % ESV(MOD-bp) 17.0 ml EF(MOD-bp) 82.0 % SV(MOD-sp4) 71.6 ml SI(MOD-sp4) 27.2 ml/m\S\2 SV(MOD-sp2) 80.9 ml SI(MOD-sp2) 30.7 ml/m\S\2 SV(MOD-bp) 77.5 ml SI(MOD-bp) 29.5 ml/m\S\2 SV(sp4-el) 76.8 ml SI(sp4-el) 29.2 ml/m\S\2 SV(sp2-el) 85.6 ml SI(sp2-el) 32.5 ml/m\S\2 Doppler Measurements and Calculations MV E max larisa 86.7 cm/sec MV A max larisa 105.8 cm/sec MV E/A 0.82 MV dec time 0.27 sec Ao V2 max 111.3 cm/sec Ao max PG 5.0 mmHg Ao max PG (full) -1.53 mmHg LV V1 max PG 6.5 mmHg LV V1 max 127.4 cm/sec PA V2 max 122.1 cm/sec PA max PG 6.0 mmHg TR max larisa 170.0 cm/sec
--- NOTE | 2017-08-20 20:26 | Discharge Instructions ---
Discharge Instructions Date of Service Aug 20, 2017. Admission Reason for Admission: Anaphylaxis Discharge Discharge Diagnosis / Problem: Anaphylaxis/ Elevated heart rate Discharge Goals Goal(s): Improve function Activity Recommendations Activity Limitations: as noted below Lifting Limitations: gradually increase as tolerated . Instructions / Follow-Up Instructions / Follow-Up Follow up with PCP next week. Either Wednesday or . Drink plenty of fluids. If you present with any symptoms of shortness of breath, chest pain, please return to hospital. Current Hospital Diet Patient's current hospital diet: Regular Diet Discharge Diet Recommended Diet: Regular Diet Pending Studies Studies pending at discharge: no Medical Emergencies . Who to Call and When: Medical Emergencies: If at any time you feel your situation is an emergency, please call 911 immediately. . Non-Emergent Contact Non-Emergency issues call your: Primary Care Provider Call Non-Emergent contact if: temperature is above 101, your pain is worsening , you have any medication questions . . "Provider Documentation" section prepared by Jose Luis Durham. .
[2017-08-21] MEDS ORDERED: SODIUM CHLORIDE 0.9% 1000ML 1,000 ML IV ONE (15:30)
--- NOTE | 2017-08-22 14:58 | Discharge Summary ---
Discharge Summary Date of Service Aug 22, 2017. Discharge Summary Admission Date: Aug 19, 2017 at 11:23 Discharge Date: Aug 20, 2017 Discharge Disposition: Home Principal Diagnosis: Tachycardia/ rash Medication Reconciliation Medication Profile: No Active Prescriptions or Reported Meds Hospital Course 32 yo male who came from home afer suffering a rash. He recently was in [place] and flew back. During his hospital stay, his rash improved. However, he remained tachycardic. Heart rate was in 115. On exam, he also had a systolic murmur I was concerned over possibliy of pulmonary emboli. D-dimer was elevated. CT scan was indeterminate due to poor imaging. Echo showed some diastolic dysfunction, but was relatively benign. After workup, I was not quite suer as to his diagnosis and why he is having tachycardia. I asked him to say to continue workup. But patient refused. Despite this, at this time, patient is relatively asymptomatic. Patient only sign is that he is tachycardia. His lower extremities are not swollen, his physical exam is benign. Again, patient does not want to stay tonight. But given lack of symtpomatology, I will not force him to sign AMA. I did tell him though aureliano I will prefer that he stayed. I sattes that if he coninues to have symptoms over the weekend to return. This includes examination of the patient, discharge planning, medication reconciliation, and communication with other providers. Discharge Instructions Please refer to the electronic Patient Visit Report (Discharge Instructions) for additional information.
== END 2017-08-20 20:50 | disposition home or self-care (01) ==
LOC: C.EDB 05:45 → UNDOADMOB 11:23 → C.EDINP 11:23 → EDBEDREQ 11:49 → ENRESERV 13:16 → C.EDINP 14:39 → C.2E 14:39 → INTOOBSV 08-20 16:39 → OBSVTOIN 08-20 16:39 → C.2E 08-20 16:39 → UNDOADMOB 08-20 16:39 → C.EDINP 08-20 16:39
PROVIDERS: ADMIT Internal Medicine; ATTEND Internal Medicine
DX: R00.0 Tachycardia, unspecified (principal); T78.02XA Anaphylactic reaction due to shellfish (crustaceans), initial encounter; X58.XXXA Exposure to other specified factors, initial encounter; F17.200 Nicotine dependence, unspecified, uncomplicated; E66.01 Morbid (severe) obesity due to excess calories; Z88.1 Allergy status to other antibiotic agents; Z88.0 Allergy status to penicillin; Z91.018 Allergy to other foods; Z68.41 Body mass index [BMI] 40.0-44.9, adult

== ENCOUNTER 2017-08-22 14:45 | Emergency (ER) | payer BC ==
[~2017-08-22] VITALS: Ht 182.9 cm; Wt 151.3 kg
[2017-08-22 14:47] VITALS: TEMP 37.1; Ht 182.9 cm; Wt 151.3 kg
[2017-08-22] MEDS ORDERED: SODIUM CHLORIDE 0.9% 1000ML 1,000 ML IV STA (15:02)
--- NOTE | 2017-08-22 15:53 | DIAGNOSTIC IMAGING REPORT ---
SINGLE VIEW CHEST CLINICAL HISTORY: Change in mental status. Weakness. FINDINGS: An AP, portable, upright chest radiograph is correlated with chest CT dated 08/20/2017. The examination is degraded by portable technique and patient rotation. The heart is top normal for projection. There is mild elevation of the right hemidiaphragm. The lungs and pleural spaces are clear. No pneumothorax is seen. The bony thorax is grossly intact. IMPRESSION: No active disease in the chest. Electronically signed by: Daquan Sumner M.D. 08/22/2017 3:52 PM Dictated Date/Time: 08/22/2017 3:51 PM
--- NOTE | 2017-08-22 16:03 | DIAGNOSTIC IMAGING REPORT ---
CT SCAN OF THE BRAIN WITHOUT IV CONTRAST CLINICAL HISTORY: Weakness. Change in mental status. Syncope. COMPARISON STUDY: No priors. TECHNIQUE: Unenhanced axial CT scan of the brain is performed from the vertex to the skull base. A dose lowering technique was utilized adhering to the principles of ALARA. CT DOSE: 687.98 mGy.cm FINDINGS: Brain parenchyma: The brain parenchyma is normal in appearance. There is no hemorrhage, mass effect, or evidence of acute territorial ischemia by CT criteria. Baird-white matter is preserved. No extra-axial fluid collection is seen. Ventricles, sulci, cisterns: Normal in configuration. Intracranial vasculature: The visualized intracranial vasculature at the skull base is normal in appearance. Calvarium: Unremarkable. Sinuses and mastoids: There is opacification of the left maxillary antrum. The remaining paranasal sinuses are clear. The mastoid air cells are well pneumatized. Orbits: The bony orbits are grossly intact. IMPRESSION: 1. No acute intracranial abnormality. 2. There is opacification of the left maxillary antrum. Electronically signed by: Daquan Sumner M.D. 08/22/2017 4:02 PM Dictated Date/Time: 08/22/2017 3:59 PM
[2017-08-22 16:05] LABS: BASO % 0.1 %; BASO ABS # 0.01 K/uL (0-0.2); EOS % 0.7 %; EOS ABS # 0.07 K/uL (0-0.5); HEMATOCRIT 38.2 % (42-52); HEMOGLOBIN 13.2 g/dL (14.0-18.0); IG# 0.06 K/uL (0.00-0.02); LYMPH ABS # 3.01 K/uL (1.2-3.4); MEAN CELL VOLUME 86.8 fL (80-100); MEAN CORPUSCULAR HGB CONC 34.6 g/dl (32-36); MEAN PLATELET VOLUME 10.6 fL (7.4-10.4); MONO % 5.9 %; MONO ABS # 0.59 K/uL (0.11-0.59); NEUT % 62.7 %; NEUT ABS # 6.29 K/uL (1.4-6.5); PLATELET COUNT 186 K/uL (130-400); RED CELL DISTRIBUTION WIDTH CV 12.9 % (11.5-14.5); RED CELL DISTRIBUTION WIDTH SD 40.8 fL (36.4-46.3); WHITE BLOOD COUNT 10.03 K/uL (4.8-10.8)
[2017-08-22 16:11] LABS: PTT PATIENT 23.4 SECONDS (21.0-31.0)
[2017-08-22 16:21] LABS: ALBUMIN 3.5 gm/dl (3.4-5.0); ALT/SGPT 105 U/L (12-78); AST/SGOT 65 U/L (15-37); BLOOD UREA NITROGEN 17 mg/dl (7-18); CALCIUM 8.1 mg/dl (8.5-10.1); CARBON DIOXIDE 27 mmol/L (21-32); CREATININE 0.85 mg/dl (0.60-1.40); GLUCOSE 90 mg/dl (70-99); LIPASE 324 U/L (73-393); POTASSIUM 3.5 mmol/L (3.5-5.1); SODIUM 140 mmol/L (136-145)
[2017-08-22 16:33] LABS: ALKALINE PHOSPHATASE 64 U/L (45-117); CKMB 1.5 ng/ml (0.5-3.6); TOTAL PROTEIN 6.7 gm/dl (6.4-8.2)
--- NOTE | 2017-08-22 16:58 | DIAGNOSTIC IMAGING REPORT ---
ULTRASOUND BILATERAL LOWER EXTREMITY VENOUS CLINICAL HISTORY: Lower extremity edema. COMPARISON STUDY: No priors. TECHNIQUE: Real-time, grayscale, and color Doppler sonography of the deep veins of the right and left lower extremity was performed from the inguinal crease to the calf. Compression and augmentation were utilized. FINDINGS: There is no sonographic evidence of deep venous thrombosis identified in the right or left lower extremity. The common femoral, superficial femoral, and popliteal veins are patent and normally compressible bilaterally. The greater saphenous vein and the profunda femoris vein at the junction with the common femoral vein are clear in both legs. The visualized calf veins are patent bilaterally. IMPRESSION: There is no sonographic evidence of deep venous thrombosis identified in the right or left lower extremity. Electronically signed by: Daquan Sumner M.D. 08/22/2017 4:56 PM Dictated Date/Time: 08/22/2017 4:56 PM
[2017-08-22 17:18] VITALS: BP 149/74; PULSE 88; O2SAT 97
[2017-08-22] MEDS ORDERED: LEVO-366 PO (17:20)
--- NOTE | 2017-08-22 17:21 | EMERGENCY ROOM VISIT NOTE ---
History Report prepared by Gena: Josef Whitt Under the Supervision of: Osmin CheO. First contact with patient: 14:52 Chief Complaint: DIZZY Stated Complaint: LIGH HEADEDNESS, PRESSURE BEHIND EYES, DIZZINESS History of Present Illness The patient is a 32 year old male who presents to the Emergency Room with complaints of worsening dizziness that began 1 day ago. When he was at work today, he states he felt lightheaded, was unable to speak clearly, and could not write down what he was thinking. He reports a headache, pressure behind his eyes, leg pain, calf swelling, abdominal pain, and limited dietary intake. He denies fevers, chest pain, heart palpitations, SOB, or strenuous exercise. He states he has had limited solid food intake. Per his , the patient was recently in [place] 1 week ago and was at [facility] for treatment of hives. His states that he has had an elevated D Dimer (3,000+). Source of History: patient, spouse/significant other Onset: 1 day ago Position: head, other (global) Quality: ache, pressure Timing: worsening Associated Symptoms: + headache, + abdominal pain, No fevers, No chest pain , No SOB Note: Patient reports pressure behind his eyes, leg pain, and calf swelling. He denies heart palpitations and strenuous exercise. He reports recent travel 1 week ago to [place]. Review of Systems See HPI for pertinent positives & negatives. A total of 10 systems reviewed and were otherwise negative. Past Medical & Surgical Medical Problems: (1) Hypoxia (2) Tachycardia Social History Smoking Status: Never Smoker Drug Use: none Marital Status: Housing Status: lives with significant other Occupation Status: employed Current/Historical Medications Scheduled Levofloxacin (Levaquin), 500 MG PO DAILY Allergies Coded Allergies: Amoxicillin (Verified Allergy, Severe, SHORTNESS OF BREATH,RASH, 08/22/17) rash Azithromycin (Verified Allergy, Severe, RASH,THROAT CLOSES, 08/22/17) throat closes some Penicillins (Verified Allergy, Severe, SHORTNESS OF BREATH,RASH, 08/22/17) rash [place] (Verified Allergy, Intermediate, pruritis, 08/22/17) Watermelon (Verified Allergy, Intermediate, itchy, 08/22/17) Uncoded Allergies: MELON (Allergy, Intermediate, itchy skin, 08/19/17) Physical Exam Vital Signs Date Time Temp Pulse Resp B/P (MAP) Pulse Ox O2 Delivery O2 Flow Rate FiO2 08/22/17 17:18 88 18 149/74 97 Room Air 08/22/17 17:12 83 08/22/17 14:47 37.1 105 18 175/109 97 Room Air Physical Exam VITAL SIGNS: were reviewed as above. GENERAL:Non-toxic in appearance. SKIN: Warm dry and pink. HEAD: Normocephalic and atraumatic. OROPHARYNX: Is clear and moist NECK: Supple without lymphadenopathy or meningismus. LUNGS: clear. HEART: Regular rate and rhythm. ABDOMEN: Soft and nontender. EXTREMITIES: Warm and well perfused. NEUROLOGICALLY: Awake alert and oriented without focal deficit. Cranial nerves 2 -12 are intact. There is no pronator drift. Cerebellar testing is within normal limits. There is no nystagmus. There is no facial droop. With his speech, the patient hesitates on occasion and feels he cannot express himself as well as he would like. Vision is grossly normal. MUSCULOSKELETAL: Good muscle tone. No evidence of trauma. Medical Decision & Procedures ER Provider Diagnostic Interpretation: Radiology results as stated below per my review and radiologist interpretation: SINGLE VIEW CHEST CLINICAL HISTORY: Change in mental status. Weakness. FINDINGS: An AP, portable, upright chest radiograph is correlated with chest CT dated 08/20/2017. The examination is degraded by portable technique and patient rotation. The heart is top normal for projection. There is mild elevation of the right hemidiaphragm. The lungs and pleural spaces are clear. No pneumothorax is seen. The bony thorax is grossly intact. IMPRESSION: No active disease in the chest. Electronically signed by: Daquan Sumner M.D. 08/22/2017 3:52 PM Dictated Date/Time: 08/22/2017 3:[address] SCAN OF THE BRAIN WITHOUT IV CONTRAST CLINICAL HISTORY: Weakness. Change in mental status. Syncope. COMPARISON STUDY: No priors. TECHNIQUE: Unenhanced axial CT scan of the brain is performed from the vertex to the skull base. A dose lowering technique was utilized adhering to the principles of ALARA. CT DOSE: 687.98 mGy.cm FINDINGS: Brain parenchyma: The brain parenchyma is normal in appearance. There is no hemorrhage, mass effect, or evidence of acute territorial ischemia by CT criteria. Baird-white matter is preserved. No extra-axial fluid collection is seen. Ventricles, sulci, cisterns: Normal in configuration. Intracranial vasculature: The visualized intracranial vasculature at the skull base is normal in appearance. Calvarium: Unremarkable. Sinuses and mastoids: There is opacification of the left maxillary antrum. The remaining paranasal sinuses are clear. The mastoid air cells are well pneumatized. Orbits: The bony orbits are grossly intact. IMPRESSION: 1. No acute intracranial abnormality. 2. There is opacification of the left maxillary antrum. Electronically signed by: Daquan Sumner M.D. 08/22/2017 4:02 PM Dictated Date/Time: 08/22/2017 3:59 PM ULTRASOUND BILATERAL LOWER EXTREMITY VENOUS CLINICAL HISTORY: Lower extremity edema. COMPARISON STUDY: No priors. TECHNIQUE: Real-time, grayscale, and color Doppler sonography of the deep veins of the right and left lower extremity was performed from the inguinal crease to the calf. Compression and augmentation were utilized. FINDINGS: There is no sonographic evidence of deep venous thrombosis identified in the right or left lower extremity. The common femoral, superficial femoral, and popliteal veins are patent and normally compressible bilaterally. The greater saphenous vein and the profunda femoris vein at the junction with the common femoral vein are clear in both legs. The visualized calf veins are patent bilaterally. IMPRESSION: There is no sonographic evidence of deep venous thrombosis identified in the right or left lower extremity. Electronically signed by: Daquan Sumner M.D. 08/22/2017 4:56 PM Dictated Date/Time: 08/22/2017 4:56 PM Laboratory Results 08/22/17 15:34 Red Blood Count 4.40, Mean Corpuscular Volume 86.8, Mean Corpuscular Hemoglobin 30.0, Mean Corpuscular Hemoglobin Concent 34.6, Mean Platelet Volume 10.6, Neutrophils (%) (Auto) 62.7, Lymphocytes (%) (Auto) 30.0, Monocytes (%) (Auto) 5.9, Eosinophils (%) (Auto) 0.7, Basophils (%) (Auto) 0.1, Neutrophils # (Auto) 6.29, Lymphocytes # (Auto) 3.01, Monocytes # (Auto) 0.59, Eosinophils # (Auto) 0.07, Basophils # (Auto) 0.01 08/22/17 15:34 Test 08/22/17 15:15 08/22/17 15:34 Urine Color YELLOW Urine Appearance CLEAR (CLEAR) Urine pH 7.0 (4.5-7.5) Urine Specific [place] 1.032 (1.000-1.030) Urine Protein NEG (NEG) Urine Glucose (UA) NEG (NEG) Urine Ketones NEG (NEG) Urine Occult Blood NEG (NEG) Urine Nitrite NEG (NEG) Urine Bilirubin NEG (NEG) Urine Urobilinogen NEG (NEG) Urine Leukocyte Esterase NEG (NEG) Urine WBC (Auto) 1-5 /hpf (0-5) Urine RBC (Auto) 0-4 /hpf (0-4) Urine Hyaline Casts (Auto) 1-5 /lpf (0-5) Urine Epithelial Cells (Auto) 10-20 /lpf (0-5) Urine Bacteria (Auto) NEG (NEG) White Blood Count 10.03 K/uL (4.8-10.8) Red Blood Count 4.40 M/uL (4.7-6.1) Hemoglobin 13.2 g/dL (14.0-18.0) Hematocrit 38.2 % (42-52) Mean Corpuscular Volume 86.8 fL (80-100) Mean Corpuscular Hemoglobin 30.0 pg (25-34) Mean Corpuscular Hemoglobin Concent 34.6 g/dl (32-36) Platelet Count 186 K/uL (130-400) Mean Platelet Volume 10.6 fL (7.4-10.4) Neutrophils (%) (Auto) 62.7 % Lymphocytes (%) (Auto) 30.0 % Monocytes (%) (Auto) 5.9 % Eosinophils (%) (Auto) 0.7 % Basophils (%) (Auto) 0.1 % Neutrophils # (Auto) 6.29 K/uL (1.4-6.5) Lymphocytes # (Auto) 3.01 K/uL (1.2-3.4) Monocytes # (Auto) 0.59 K/uL (0.11-0.59) Eosinophils # (Auto) 0.07 K/uL (0-0.5) Basophils # (Auto) 0.01 K/uL (0-0.2) RDW Standard Deviation 40.8 fL (36.4-46.3) RDW Coefficient of Variation 12.9 % (11.5-14.5) Immature Granulocyte % (Auto) 0.6 % Immature Granulocyte # (Auto) 0.06 K/uL (0.00-0.02) Prothrombin Time 10.7 SECONDS (9.0-12.0) Prothromb Time International Ratio 1.0 (0.9-1.1) Activated Partial Thromboplast Time 23.4 SECONDS (21.0-31.0) Partial Thromboplastin Ratio 0.9 Anion Gap 8.0 mmol/L (3-11) Est Creatinine Clear Calc Drug Dose 190.7 ml/min Estimated GFR () 134.6 Estimated GFR (Non- 116.1 BUN/Creatinine Ratio 19.8 (10-20) Calcium Level 8.1 mg/dl (8.5-10.1) Magnesium Level 2.1 mg/dl (1.8-2.4) Total Bilirubin 0.3 mg/dl (0.2-1) Direct Bilirubin 0.1 mg/dl (0-0.2) Aspartate Amino Transf (AST/SGOT) 65 U/L (15-37) Alanine Aminotransferase (ALT/SGPT) 105 U/L (12-78) Alkaline Phosphatase 64 U/L (45-117) Total Creatine Kinase 93 U/L (39-308) Creatine Kinase MB 1.5 ng/ml (0.5-3.6) Creatine Kinase MB Ratio 1.6 (0-3.0) Troponin I < 0.015 ng/ml (0-0.045) Total Protein 6.7 gm/dl (6.4-8.2) Albumin 3.5 gm/dl (3.4-5.0) Lipase 324 U/L (73-393) Thyroid Stimulating Hormone (TSH) 2.410 uIu/ml (0.300-4.500) Laboratory results as stated above per my review. Medications Administered Medications (Trade) Dose Ordered Sig/Mirna Route Start Time Stop Time Status Last Admin Dose Admin Sodium Chloride 1,000 ml @ 999 mls/hr Q1H1M STAT IV 08/22/17 15:02 08/22/17 16:02 DC 08/22/17 15:45 999 MLS/HR ECG Per My Interpretation Indication: weakness, other (lightheadedness and dizziness) Rate (beats per minute): 92 Rhythm: normal sinus Findings: T-wave inversion (Inferior) Change: no significant change (similar to EKG to 08/20/2017 with less baseline artifact) ED Course 1452: Previous medical records were reviewed. The patient was evaluated in room C3. A complete history and physical examination was performed. 1502: Sodium Chloride 1000 ml @ 999 mls/hr IV. 1638: I checked on the patient and he is doing well. 1722: Levaquin Tab, 500 mg, PO. 1730: On reevaluation, the patient is doing well. I discussed the results and findings with the patient. He verbalized agreement of the treatment plan. The patient was discharged home. Medical Decision Differential includes acute coronary syndrome, myocardial infarction, CVA, TIA, anemia, infection, pneumonia, UTI, pyelonephritis, poor nutrition, dehydration, electrolyte disturbance,hypoglycemia. This is a 32-year-old male who presents to the ED with a chief complaint of lightheadedness when he was going to work today. He does not feel quite right. The patient reported a slight headache and some pressure behind his eyes. He also, on review of systems reported some bilateral calf discomfort. The patient was in [place] a week ago. He was discharged from the hospital a couple of days ago after being admitted for what appeared to be some sort of allergic reaction or rash. The patient's d-dimer was elevated during his stay but he did not have ultrasounds of the legs. He did have a CT scan of the chest that did not show any acute abnormality and an echocardiogram that was relatively unremarkable. The patient's initial blood pressure here was elevated. He did not take antihypertensives. It was slightly better when I saw him in the room. An EKG shows a normal sinus rhythm at a rate of 92 with some inferior T-wave inversions in lead 3 and aVF. This appears to be similar to a previous EKG that was done during his most recent admission. Today's EKG has less artifact. During my evaluation of the patient, he reported that he could not express was self as well as he was thinking of his brain although he did not have any difficulty relating his message. He was several times while speaking and the stated this was unusual for him. He otherwise does not have any lack of fluency or bloody to relay and appropriate message. His speech did not appear slurred. His neurological exam and physical exam was unremarkable. He had no rashes on his exam today. The patient's CBC is unremarkable, complete metabolic panel was normal, urine did not show infection, chest x-ray did not show acute disease. A CT scan of the brain did not show acute intracranial process. There is noted to be opacification of the left maxillary antrum. The troponin was negative. Bilateral lower extremity ultrasounds was negative for DVT. The patient was told results the test. The patient was started on Levaquin. The patient's requested a referral to infectious disease because she was concerned about him having acquired something from [place]. They were given referral for this. Of note, the patient was asked about his symptoms regarding this sinusitis noted on CT scan. He has had some congestion this morning. Medication Reconcilliation Current Medication List: was personally reviewed by me Blood Pressure Screening Patient's blood pressure: Elevated blood pressure Blood pressure disposition: Elevated BP felt to be situational Impression Primary Impression: Lightheaded Additional Impressions: Headache Sinusitis Scribe Attestation The scribe's documentation has been prepared under my direction and personally reviewed by me in its entirety. I confirm that the note above accurately reflects all work, treatment, procedures, and medical decision making performed by me. Departure Information Dispostion Home / Self-Care Prescriptions Levofloxacin (Levaquin) 500 Mg Tab 500 MG PO DAILY for 10 Days, #10 TAB Prov: Marco Saldivar D.O. 08/22/17 Referrals Deny Joshi M.D. (PCP) Luiz Aguillon MD Forms HOME CARE DOCUMENTATION FORM, IMPORTANT VISIT INFORMATION, Work Instructions Return To Work: 1 day Patient Instructions My [facility], Sinusitis Acute Additional Instructions Levaquin as prescribed for sinus infection. You may contact Dr. Aguillon/his office for infectious disease follow-up. Follow-up with your doctor for further care and evaluation in 1-5 days. Return to the emergency department for worsening or new symptoms or any concerns. You have been examined and treated today on an emergency basis only. This is not a substitute for, or an effort to provide, complete comprehensive medical care. It is impossible to recognize and treat all injuries or illnesses in a single emergency department visit. It is therefore important that you follow up closely with your doctor. Call as soon as possible for an appointment. Problem Qualifiers
[2017-08-22] MEDS ORDERED: LEVOFLOXACIN 250 MG TAB PO STA (17:22)
== END 2017-08-22 18:00 | disposition home or self-care (01) ==
LOC: C.EDB 14:46 → C.EDC 18:00
DX: R42 Dizziness and giddiness (principal); R51 Headache; J01.90 Acute sinusitis, unspecified; Z88.0 Allergy status to penicillin; Z88.1 Allergy status to other antibiotic agents; Z91.018 Allergy to other foods